=== PATIENT | female | born 1990 | race Caucasian/White ===

== ENCOUNTER 2016-06-20 09:38 | Emergency (ER) | payer MEDICAID ==
[2016-06-20 10:12] LABS: COLOR YELLOW; LEUKOCYTE ESTERASE,URINE 1+ (NEGATIVE); NITRITE,URINE NEGATIVE (NEGATIVE)
[2016-06-20 10:26] LABS: BACTERIA 2+ /hpf (NONE SEEN); MUCUS 2+ /lpf (NONE-1+); YEAST OCCASIONAL /hpf (NONE SEEN)
[2016-06-20] MEDS ORDERED: NS 1,000 ML IV ONE (11:01)
--- NOTE | 2016-06-20 11:01 | UCPHY ---
H & P Patient Type: Established Chief Complaint Nursing Narrative: LEFT SIDED ABD PAIN FOR 1 MONTH, DENIES URINARY S/SX, DENIES FEVERS OR N/V/D. Time Seen by Provider: 06/20/16 09:40 HPI/ROS: CHIEF COMPLAINT: Left lower quadrant abdominal pain episodic over last month HISTORY OF PRESENT ILLNESS: This is a 26-year-old female with longstanding history of erratic menstrual periods. Furthermore she is not currently using any form of contraception. Approximately 1 month ago she started noting episodic left lower quadrant pain. This would last for very long maybe 5-10 seconds. It is [id number] in nature and would happened only once a week at most. It happened last night. He came in wanting is not there this morning. However it did occur somewhat as we were checking during the history and physical. Thereby as it had come back last night it was something she could no longer nor and came on in for evaluation. She has not done home test. Point of fact she is more concerned for the prospect of this being ovarian cancer. There is a family history of ovarian cancer in a paternal aunt however the specifics are vague as her father was adopted and he is only becoming aware of the family history as he has only been coming in contact with his biological family. They are IV do not know about any genetic testing age of onset. There is also a paternal great grandmother who had ovarian cancer furthermore, specifics or further unavailable that. P: Not worse with walking or standing. Q: An ache R: Left lower quadrant without radiation S: Mild T: Episodic, weekly, few seconds REVIEW OF SYSTEMS: Constitutional: No fever, no chills. Eyes: No diplopia. ENT: No sore throat. Cardiovascular: No chest pain, no palpitations. Respiratory: No cough, shortness of breath, or wheezing. Gastrointestinal: No nausea vomiting or diarrhea. See above. Gynecological: See above. Last menstrual. She cannot even guess when I gave her multiple choice such as April or March. No vaginal discharge or bleeding. Genitourinary: No hematuria or frequency. Musculoskeletal: No back pain. Skin: No rashes. Neurological: No headache. 10 point ROS otherwise negative Source: Patient Exam Limitations: No limitations - Personal History LMP (Females 10-55): Irregular Current Tetanus Diphtheria and Acellular Pertussis (TDAP): Yes Tetanus Vaccine Date: 03/30/11 - Medical/Surgical History Hx Asthma: No Hx Chronic Respiratory Disease: No Hx Diabetes: No Hx Cardiac Disease: No Hx Renal Disease: No Hx Cirrhosis: No Hx Alcoholism: No Hx HIV/AIDS: No Hx Splenectomy or Spleen Trauma: No Other PMH: med hx-none. surg-none - Family History Significant Family History: No pertinent family hx - Social History Smoking Status: Never smoked Alcohol Use: None Drug Use: None - Physical Exam Exam: General Appearance: Alert, no distress. Afebrile. Normal phonation. No respiratory distress. Eyes: Pupils equal and round no pallor or injection. No icterus ENT, Mouth: Mucous membranes moist. Pharynx without erythema or exudate. TM Clear. Neck: No adenopathy. Supple. No JVD. Trachea in midline. Respiratory: There are no retractions, lungs are clear to auscultation. Cardiovascular: Regular rate and rhythm. Abdomen: Soft and nontender, no masses, bowel sounds normal. Femoral pulses equal. Neurological: Ox3. No motor weakness. Sensation intact. Gait nl. Skin: Warm and dry, no rashes. Musculoskeletal: No joint swelling. Extremities: No edema. Homans sign negative. No cords. Psychiatric: Patient is oriented X 3, there is no agitation Constitutional: Initial Vital Signs Temperature (C) 36.6 C 06/20/16 10:05 Heart Rate 74 06/20/16 10:05 Respiratory Rate 18 06/20/16 10:05 Blood Pressure 112/58 L 06/20/16 10:05 O2 Sat (%) 98 06/20/16 10:05 O2 Delivery Mode Room Air Allergies/Adverse Reactions: No Known Allergies Allergy (Verified 06/20/16 10:05) Home Medications: Medication Instructions Recorded No Medications [NO [place] 0 [place] [facility] [place] Medical Decision Making ED Course/Re-evaluation: Laboratory studies were obtained including a negative urinalysis with a positive test. Serum test came back at about 6000. Highly suggestive of that will be intrauterine. Ultrasound was performed. Results are discussed with the radiologist: There is a decidual sac but no yolk sac or heart beat per se. Thereby while this does have a intrauterine there is unclear as the viability. Given level of her serum test further HCG testing would not be helpful. Most likely a follow-up ultrasound next week and clinical follow-up which she has been referred [facility] to [facility]. Differential Diagnosis: Differential diagnosis includes, but is not limited to: Gastroenteritis, dehydration, diverticulitis, hepatitis, cholecystitis, appendicitis, gastritis, mesenteric adenitis, food poisoning, bacterial dysentery - Data Points Laboratory Results: Laboratory Results 06/20/16 11:00 Medications Given: Discontinued Medications Sodium Chloride (Ns) 1,000 mls @ 0 mls/hr IV ONCE ONE PRN Reason: Wide Open Stop: 06/20/16 11:02 Last Admin: 06/20/16 11:31 Dose: 1,000 mls Departure - Departure Disposition: Home, Routine, Self-Care Clinical Impression: Abdominal pain, Condition: Good Instructions: (ED), Abdominal Pain (ED) Additional Instructions: Call the [facility] for care. Follow up with the wound 1 week return if fever or developing shoulder pain or feeling faint Referrals: [facility],. [Primary Care Provider] - As per Instructions - PQRS PQRS Measurement: NA
[2016-06-20 11:10] LABS: % IMMATURE GRANULYOCYTES 0.3 % (0.0-1.1); ABSOLUTE IMMATURE GRANULOCYTES 0.02 10^3/uL (0.00-0.10); ADD DIFF? NO; ADD MORPH? NO; ADD SCAN? NO; ATYPICAL LYMPHOCYTE FLAG 0 (0-99); FRAGMENT RBC FLAG 0 (0-99); HEMOGLOBIN 13.8 g/dL (12.6-16.3); LEFT SHIFT FLG 0 (0-99); LIPEMIA HEMOLYSIS FLAG 80 (0-99); MEAN CELL HEMOGLOBIN 27.3 pg (27.9-34.1); MEAN CELL HEMOGLOBIN CONCENTR. 32.9 g/dL (32.4-36.7); MEAN PLATELET VOLUME 9.7 fL (8.7-11.7); PLATELET CLUMPS FLAG 10 (0-99); PLATELET COUNT 291 10^3/uL (150-400); RED BLOOD CELL COUNT 5.06 10^6/uL (4.18-5.33); RED CELL DISTRIBUTION WIDTH 13.1 % (11.5-15.2)
[2016-06-20 13:07] VITALS: BP 115/62; PULSE 87; RESP 18; TEMP 98; O2SAT 97
== END 2016-06-20 13:05 | disposition home or self-care (01) ==
LOC: CED 09:38
DX: O99.89 Other specified diseases and conditions complicating pregnancy, childbirth and the puerperium (principal); R10.32 Left lower quadrant pain; Z3A.01 Less than 8 weeks gestation of pregnancy; Z80.41 Family history of malignant neoplasm of ovary
CPT/HCPCS: 81003-PO; 81015-PO; 81025-PO; 84702-PO; 85025-PO; G0463-PO

== ENCOUNTER 2017-06-14 20:17 | Emergency (ER) | payer MEDICAID ==
[2017-06-14 20:43] VITALS: BP 111/60; PULSE 89; RESP 16; TEMP 97.9; O2SAT 96
--- NOTE | 2017-06-14 20:57 | EDPHY ---
H & P Stated Complaint: sore throat, R ear pain. Time Seen by Provider: 06/14/17 20:35 HPI/ROS: Chief Complaint: Congestion, sore throat, ear pain HPI: 27-year-old woman presenting with several days of congestion, sore throat , ear pain in the right today. She is having throat clearing. Dry nonproductive cough. Her children have similar symptoms. No fevers or chills. No nausea or vomiting. No shortness of breath. ROS: 10 point Review of Systems is negative except as noted in the HPI. PMH: Denies Social History: No smoking, no alcohol, no recreational drug use Family History: non-contributory Physical Exam: Gen: Awake, Alert, No Distress HEENT: Ears: Bilateral TMs are normal. Nose: no rhinorrhea Eyes: PERRLA, EOMI Mouth: Moist mucosa Neck: Supple, no JVD Chest: nontender, lungs clear to auscultation Heart: S1, S2 normal, no murmur Abd: Soft, non-tender, no guarding Back: no CVA tenderness, no midline tenderness Ext: no edema, non-tender Skin: no rash Neuro: CN II-XII intact, Sensation grossly intact, Strength 5/5 in bilateral upper and lower extremities - Personal History Current Tetanus Diphtheria and Acellular Pertussis (TDAP): Yes Tetanus Vaccine Date: 03/30/11 - Medical/Surgical History Hx Asthma: No Hx Chronic Respiratory Disease: No Hx Diabetes: No Hx Cardiac Disease: No Hx Renal Disease: No Hx Cirrhosis: No Hx Alcoholism: No Hx HIV/AIDS: No Hx Splenectomy or Spleen Trauma: No Other PMH: med hx-none. surg-none - Social History Smoking Status: Never smoked Constitutional: Initial Vital Signs Temperature (C) 36.6 C 06/14/17 20:41 Heart Rate 89 06/14/17 20:41 Respiratory Rate 16 06/14/17 20:41 Blood Pressure 111/60 06/14/17 20:41 O2 Sat (%) 96 06/14/17 20:41 O2 Delivery Mode Room Air Allergies/Adverse Reactions: No Known Allergies Allergy (Verified 06/14/17 20:41) Home Medications: Medication Instructions Recorded No Medications [NO HOME 0 ea [facility] 03/30/11 MEDICATIONS] Medical Decision Making ED Course/Re-evaluation: 27-year-old with viral URI symptoms. No evidence of acute otitis media. Departure - Departure Disposition: Home, Routine, Self-Care Clinical Impression: Acute upper respiratory infection Condition: Good Instructions: Upper Respiratory Infection (ED) Additional Instructions: Alternate acetaminophen (1000 mg) with ibuprofen (400 mg) every 4 hours as needed for fevers, chills, aches or pain. Follow up with your primary care physician in 2-3 days if symptoms are not improving. Referrals: RICHI IQBAL,. [Primary Care Provider] - As per Instructions
== END 2017-06-14 21:15 | disposition home or self-care (01) ==
LOC: CED 20:17
DX: J06.9 Acute upper respiratory infection, unspecified (principal)

== ENCOUNTER 2017-07-07 19:30 | Emergency (ER) | payer MEDICAID ==
[2017-07-07 19:56] VITALS: TEMP 98.2; O2SAT 96
--- NOTE | 2017-07-07 21:05 | EDPHY ---
H & P Time Seen by Provider: 07/07/17 20:02 HPI/ROS: This patient complains of the smell of sulfur in her nose. Her and children do not notice any sulfur smell when she is noticing this over the past few days. She also reports feeling like she is having"hot flashes"over the past few days. She has no other associated symptoms. She reports that the sulfa smells intermittent and she notes no exacerbating or alleviating factors. ROS: Constitutional: No fevers. No chills. No fatigue. HEENT: No trauma. No sinus pain. No epistaxis Pulmonary: No cough Neuro: No headache. No numbness or tingling. No visual changes. No focal weakness. 5 point ROS is otherwise negative Smoking Status: Never smoked Physical Exam: Physical Exam Vital signs are normal. General: No acute distress HEENT: Atraumatic. Nose: Clear she has no sinus tenderness to percussion. Ears: External canals and TMs clear bilaterally. Intraoral exam: No pharyngeal erythema or other abnormal findings. Eyes: Pupils equal and react to light. Extraocular motions are intact. Neck: Supple with no meningismus Lungs: No respiratory distress. Cardiac: Brisk capillary refill is intact throughout. Skin: No rash or pallor. Neuro: GCS 15 without focal deficits appreciated. Initial differential diagnosis: olfactory aura, sinusitis, psychosomatic symptoms Constitutional: Initial Vital Signs Temperature (C) 36.8 C 07/07/17 19:53 Heart Rate 86 07/07/17 19:53 Respiratory Rate 18 07/07/17 19:53 Blood Pressure 110/70 07/07/17 19:53 O2 Sat (%) 96 07/07/17 19:53 O2 Delivery Mode Room Air Allergies/Adverse Reactions: No Known Allergies Allergy (Verified 06/14/17 20:41) Home Medications: Medication Instructions Recorded No Medications [NO HOME 0 ea [facility] [place] MDM/Departure - [facility] ED Course/Re-evaluation: This patient appears entirely well clinically with the odd symptom of a sulfur smell in her nose. She has not have any other symptoms that would suggest migraine phenomena. I do not think she has sinusitis. Will refer her to Neurology for any ongoing symptoms. - Depart Disposition: Home, Routine, Self-Care Clinical Impression: Olfactory aura Condition: Good Additional Instructions: Diagnosis: Olfactory aura Plan: Follow up with primary care physician. Consider follow-up with neurologist for any ongoing symptoms. Referrals: FARIDA STODDARD [Other] - As per Instructions Neurologists Bipin,MD Jovani [Medical Doctor] - As per Instructions
[2017-07-07 21:40] VITALS: BP 120/82; PULSE 82; RESP 16
== END 2017-07-07 21:30 | disposition home or self-care (01) ==
LOC: CED 19:30
DX: R43.8 Other disturbances of smell and taste (principal)

== ENCOUNTER 2017-09-17 12:43 | Emergency (ER) | payer MEDICAID ==
[2017-09-17 12:52] VITALS: BP 105/67
--- NOTE | 2017-09-17 13:20 | EDPHY ---
H & P Time Seen by Provider: 09/17/17 12:55 HPI/ROS: CHIEF COMPLAINT: Enlarged uvula History by patient HISTORY OF PRESENT ILLNESS: 27-year-old woman with history of chronic "cold sores"presents complaining of her uvula enlarging and swelling after taking half a tablet of a CBD pill 3 days ago. She says initially it was quite large but has actually gotten smaller. She has not had any trouble breathing or lying flat because of this. She does feel that it is annoying to feel this in the back of her throat. She denies any other throat tightening, high as, itching. She did developed a cold sore on her left lower lip this morning. She denies any trauma to the uvula or smoking anything. REVIEW OF SYSTEMS: As in HPI, and all other systems reviewed and are negative Smoking Status: Never smoked Physical Exam: General Appearance: Alert and no distress. Speaking full sentences Head: normocephalic, atraumatic, no sinus tenderness Eyes: Pupils equal and round no injection. Lips: Positive small vesicular lesion left lower lip OP: mucus membranes moist, no tonsillar enlargement, no exudates, positive enlarged, red uvula with multiple small vesicles Neck: no meningismus, no cervical nodes, no submandibular nodes Respiratory: Chest is nontender, lungs are clear to auscultation. No wheezes, rales, rhonchi Cardiac: regular rate and rhythm. S1, S2, no murmurs, gallops, rubs appreciated. Gastrointestinal: Abdomen is soft and nontender, no masses, bowel sounds normal. Musculoskeletal: Neck is supple and nontender. Extremities have full range of motion and are nontender. Skin: No rashes or lesions. Constitutional: Initial Vital Signs Temperature (C) 36.5 C 09/17/17 12:49 Heart Rate 91 09/17/17 12:49 Respiratory Rate 18 09/17/17 12:49 Blood Pressure 105/67 09/17/17 12:49 O2 Sat (%) 96 09/17/17 12:49 O2 Delivery Mode Room Air Allergies/Adverse Reactions: No Known Allergies Allergy (Verified 09/17/17 12:49) Home Medications: Medication Instructions Recorded No Medications [NO HOME 0 ea [facility] [place] 03/30[place]11 MEDICATIONS] valACYclovir [Valtrex (*)] 500 mg PO BID #6 tab 09/17/17 MDM/Departure - MDM ED Course/Re-evaluation: 27-year-old woman presents with vesicular lesion on her lip as well as enlarged uvula with vesicular lesions on the uvula. There is no evidence of allergic reaction or airway compromise. Patient is able to swallow without difficulty. I suspect this is all related to viral lesions. We will give the patient a trial of acyclovir. - Depart Disposition: Home, Routine, Self-Care Clinical Impression: Uvulitis, Herpes labialis Condition: Good Instructions: Uvulitis (ED) Additional Instructions: You were seen by Dr. Laura Hubbard today. Your uvula is swollen due to a viral lesion a on it. Please take antiviral medicine as prescribed. This is contagious, like your cold sores. Return for any worsening or new concerns. Prescriptions: valACYclovir [Valtrex (*)] 500 mg PO BID #6 tab
== END 2017-09-17 13:35 | disposition home or self-care (01) ==
LOC: CED 12:43
DX: K12.2 Cellulitis and abscess of mouth (principal); B00.1 Herpesviral vesicular dermatitis

== ENCOUNTER 2018-09-20 22:36 | Emergency (ER) | payer MEDICAID | END 2018-09-21 01:05 | disposition home or self-care (01) | LOC: CED 09-21 01:05 ==